=== PATIENT | male | born 1995 | race Caucasian/White ===

== ENCOUNTER 2017-04-03 21:15 | Emergency (ER) | payer OTHER ==
[~2017-04-03] VITALS: Ht 185.4 cm; Wt 72.7 kg
[2017-04-03] MEDS ORDERED: CLINDAMYCIN 150 MG CAP PO ONE (23:15)
[2017-04-03] MEDS ORDERED: diphenhydrAMINE 50 MG CAP PO ONE (23:15)
[2017-04-03] MEDS ORDERED: CLEO300C2 PO (23:17)
[2017-04-03] MEDS ORDERED: PRED20TA PO (23:17)
[2017-04-03 23:24] VITALS: BP 112/58
== END 2017-04-03 23:25 | disposition home or self-care (01) ==
LOC: M ED 21:15
DX: S81.851A Open bite, right lower leg, initial encounter (principal); S81.852A Open bite, left lower leg, initial encounter; L08.9 Local infection of the skin and subcutaneous tissue, unspecified; W57.XXXA Bitten or stung by nonvenomous insect and other nonvenomous arthropods, initial encounter; Y92.89 Other specified places as the place of occurrence of the external cause; Y93.89 Activity, other specified; Y99.9 Unspecified external cause status